=== PATIENT | female | born 1940 | race Caucasian/White ===

== ENCOUNTER 2018-04-10 00:16 | Emergency (ER) | payer MEDICARE, BC ==
[2018-04-10 00:21] VITALS: RESP 18
[2018-04-10] MEDS ORDERED: DIPH,PERTUS(ACELL)TETVAC-LF 0.5 ML VIAL IM ONE (00:23)
[2018-04-10] MEDS ORDERED: ONDANSETRON 4 MG TAB PO STA (00:59)
--- NOTE | 2018-04-10 01:05 | CT ---
EXAMINATION TYPE: CT brain darrick wo con DATE OF EXAM: 04/10/2018 COMPARISON: NONE HISTORY: fall CT DLP: 1282.80 mGycm Automated exposure control for dose reduction was used. TECHNIQUE: CT scan of the head and cervical spine are performed without contrast. FINDINGS: There is mild cerebral cortical atrophy. There is no mass effect nor midline shift. There is no sign of intracranial hemorrhage. The calvarium is intact. There is small mucus retention cyst in the left maxillary sinus. Cervical vertebra have fairly normal spacing and alignment. Posterior elements are intact. The skull base is intact. There is no evidence of a fracture. There is emphysema and fibrosis at the lung apice s. IMPRESSION: Negative CT scan of the brain. Negative CT scan of the cervical spine. No fracture. Emphysema and fibrosis and scarring at the lung apices.
--- NOTE | 2018-04-10 01:07 | CT ---
EXAMINATION TYPE: CT facial bones wo con DATE OF EXAM: 04/10/2018 COMPARISON: NONE HISTORY: fall CT DLP: 581.40 mGycm Automated exposure control for dose reduction was used. TECHNIQUE: CT scan of the sinuses is performed without contrast, axial images are obtained, coronal r eformatted images are also reviewed. FINDINGS: The orbital margins are intact. There is no evidence of a blowout fracture. There is small mucous retention cyst in the left maxillary sinus. Sinuses are otherwise fairly well aerated. I see n o bony destructive process. Maxilla is intact. Nasal bone appears intact. Zygomatic arches appear nor mal. The mandibular ring is intact. The globes are symmetric. There is no evidence of retro-orbital m ass. IMPRESSION: Negative CT scan of the facial bones. No fracture.
--- NOTE | 2018-04-10 01:17 | ED ---
General Adult HPI - General Chief complaint: Fall Stated complaint: Fall Time Seen by Provider: 04/10/18 00:19 Source: patient, EMS, RN notes reviewed, old records reviewed Mode of arrival: EMS - History of Present Illness Initial comments: 78-year-old female presents status post trip and fall with head injury. Patient states she tripped falling onto her left side including her left knee, left shoulder and elbow, and left side of her face. There was significant facial injury with the fall, no loss of consciousness. Patient is not on blood thinners. Patient is complaining of left facial pain, left shoulder pain and left knee pain primarily. Patient denies any visual changes. Denies focal weakness or numbness. Denies chest pain or abdominal pain. - Related Data Allergies Allergy/AdvReac Type Severity Reaction Status Date / Time Penicillins Allergy Anaphylaxis Verified 04/10/18 00:22 Review of Systems ROS Statement: Those systems with pertinent positive or pertinent negative responses have been documented in the HPI. ROS Other: All systems not noted in ROS Statement are negative. Past Medical History Past Medical History: Hyperlipidemia, Thyroid Disorder Additional Past Medical History / Comment(s): Atrial tachycardia History of Any Multi-Drug Resistant Organisms: None Reported Past Surgical History: Hernia Repair, Hysterectomy Additional Past Surgical History / Comment(s): bunion repair, rectal fissure repair. Past Psychological History: No Psychological Hx Reported Smoking Status: Former smoker Past Alcohol Use History: Rare Past Drug Use History: None Reported General Exam General appearance: alert, in no apparent distress Head exam: Present: normocephalic, other (Abrasion and contusion to the left cheek, no bony tenderness surrounding the orbit) Eye exam: Present: PERRL, EOMI Neck exam: Present: normal inspection, full ROM. Absent: tenderness, meningismus Respiratory exam: Present: normal lung sounds bilaterally. Absent: respiratory distress, wheezes Cardiovascular Exam: Present: regular rate, normal rhythm GI/Abdominal exam: Present: soft. Absent: distended, tenderness, guarding Extremities exam: Present: other (Left knee: Tenderness, abrasion, range of motion limited secondary to pain. Left elbow abrasion, tenderness to palpation over the superior aspect of the left shoulder.) Neurological exam: Present: alert, oriented X3, CN II-XII intact. Absent: motor sensory deficit Skin exam: Present: warm, dry Course Vital Signs 04/10/18 04/10/18 04/10/18 00:18 03:04 03:43 Temperature 97.4 F L 97.0 F L Pulse Rate 83 71 77 Respiratory 18 18 18 Rate Blood Pressure 152/89 121/69 105/57 O2 Sat by Pulse 99 95 97 Oximetry 04/10/18 05:03 Temperature Pulse Rate 77 Respiratory 18 Rate Blood Pressure 97/56 O2 Sat by Pulse Oximetry Medical Decision Making - Medical Decision Making 78-year-old female presents status post fall with injury to the left knee, left shoulder, and left cheek. There is no loss consciousness. No blood thinners. Patient has a normal neurologic exam. Head CT is obtained, is negative for intracranial hemorrhage or mass effect. CT cervical spine negative for fracture or subluxation. CT of facial bones is negative for any acute bony abnormality. X-ray of the shoulder, pelvis, and knee are negative for any acute bony abnormalities. Chest x-ray is negative for acute cardiopulmonary disease, there is some changes consistent with COPD. Fall was mechanical in nature. Patient is observed in the emergency department with no deterioration in her mental status or neuro exam. Tetanus is up-to- date. Wounds are cleansed and dressing applied. On reevaluation, patient is eager for discharge. She will follow-up with her primary care physician. Disposition Clinical Impression: Fall, Concussion, Knee contusion, Abrasion Disposition: HOME SELF-CARE Condition: Good Instructions: Abrasion (ED), Concussion (ED) Additional Instructions: Please follow up with her primary care physician. Is patient prescribed a controlled substance at d/c from ED?: No Referrals: Nonstaff,Physician [Primary Care Provider] - 1-2 days Time of Disposition: 06:14
--- NOTE | 2018-04-10 01:52 | XR ---
EXAMINATION TYPE: XR pelvis AP view DATE OF EXAM: 04/10/2018 COMPARISON: NONE HISTORY: Fall and left hip pain TECHNIQUE: Single view FINDINGS: The pelvic ring is intact. Proximal femurs and hip joints are intact. Sacroiliac joints tomasa ear normal. IMPRESSION: Negative pelvis exam.
--- NOTE | 2018-04-10 01:53 | XR ---
EXAMINATION TYPE: XR knee complete LT DATE OF EXAM: 04/10/2018 COMPARISON: NONE HISTORY: Knee pain TECHNIQUE: 3 views FINDINGS: I see no fracture nor dislocation. Joint spaces are fairly normal. There is no sign of a jay int effusion. IMPRESSION: Negative left knee exam.
--- NOTE | 2018-04-10 01:54 | XR ---
EXAMINATION TYPE: XR chest 2V DATE OF EXAM: 04/10/2018 COMPARISON: NONE HISTORY: TECHNIQUE: Frontal and lateral views of the chest are obtained. FINDINGS: There is no heart failure nor confluent pneumonic infiltrate. There is mild pulmonary hype rinflation. Heart size is normal. Bony thorax is intact. IMPRESSION: No active cardiopulmonary disease. There is probably some COPD.
--- NOTE | 2018-04-10 01:54 | XR ---
EXAMINATION TYPE: XR shoulder complete LT DATE OF EXAM: 04/10/2018 COMPARISON: NONE HISTORY: Left shoulder pain TECHNIQUE: 3 views FINDINGS: I see no fracture nor dislocation. Glenohumeral joint is anatomic. There are no pathologic calcifications. IMPRESSION: Negative left shoulder exam.
[2018-04-10] MEDS ORDERED: ONDANSETRON ODT 4 MG TAB PO STA (02:32)
[2018-04-10 03:06] VITALS: TEMP 97
[2018-04-10 06:14] VITALS: BP 110/66; PULSE 82
== END 2018-04-10 06:27 | disposition home or self-care (01) ==
LOC: EC 00:16
DX: S06.0X0A Concussion without loss of consciousness, initial encounter (principal); S80.02XA Contusion of left knee, initial encounter; S50.312A Abrasion of left elbow, initial encounter; M25.512 Pain in left shoulder; Z23 Encounter for immunization; Z87.891 Personal history of nicotine dependence; Z98.890 Other specified postprocedural states; Z88.0 Allergy status to penicillin; W01.198A Fall on same level from slipping, tripping and stumbling with subsequent striking against other object, initial encounter
CPT/HCPCS: 70450; 70486; 71046; 72125; 72170; 90471; 90715; 99284